=== PATIENT | female | born 1990 | race Caucasian/White ===

== ENCOUNTER 2017-10-30 08:16 | Inpatient (IN) | payer OTHER ==
[2017-10-30] MEDS ORDERED: Penicillin G Potassium IV* 5,000,000 UNITS in NS 0.9% 100 ML* 100 ML IVPB ONE (09:39)
[2017-10-30] MEDS ORDERED: Misoprostol TAB* 100 MCG PO ONE (09:39)
--- NOTE | 2017-10-30 09:52 | HP ---
General Information - Reason for Visit induction of labor - General Information Maternal Age: 27 Grav: 2 Para: 0 SAB: 1 IEA: 0 Estimated Due Date: 10/26/17 Determined By: LMP Gestational Age in Weeks/Days: 40.4 Maternal Blood Type and Rh: A Positive - Results this Serology/RPR Result: Non-Reactive Rubella Result: Non-Immune HBsAg Result: Negative HIV Result: Negative GBS Culture Result: Positive Past Medical History Delivery History: See Records Pertinent Past Medical History: See Records - HSV I (vaginally), BMI 31, GBS + Pertinent Past Surgical History: See Records - groin: hernia 1994 Pertinent Family History: See Records - HTN, BrCA, DM - Antepartal Records Antepartal Records: Reviewed, Complicated by: - HSV I (vaginally), GBS +, BMI 31 Review of Systems Constitutional: Comfortable CV Complaint: No Respiratory: Shortness of Breath: No Gastrointestinal: No Nausea/Vomiting, Normal Bowel Movement Genitourinary: No Dysuria, No Bleeding, No Leaking Fluid Musculoskeletal: No Complaint, No Epigastric Pain Neurological: No Headache, No Visual Changes Movement: Normal Exam Allergies/Adverse Reactions: Allergies No Known Allergies Allergy (Verified 10/21/17 18:33) T:98.2, P:90, R:18, BP:127/75, O2:98 - Measurements Height: 5 ft 3 in Weight: 197 lb Weight in lbs: [phone] Body Mass Index (BMI): 34.9 Pre- Weight: 170 lb Weight Gained This : 27 lbs and 0 ozs - Exam Breast: Breast Exam Deferred CVA: No CVA Tenderness Extremities: No Edema Heart: Normal Rhythm/Heart Sounds HEENT: No Significant Findings Lungs: Clear Bilaterally Rectal: Rectal Exam Deferred Reflexes: DTR 2+ Thyroid: No Thyromegaly - Abdominal Exam Abdomen Exam: Fundal Height Consistent with Dates - Ultrasound/Biophysical Profile Ultrasound Status: Not Done Targeted Exam Findings Cervical Exam: 1cm Effacement: 60% Station: -2 Presenting Part: Vertex Membrane Status: Intact Bleeding/Discharge: None EFM Findings - External Monitor Findings Baseline Heart Rate: 135 External Monitor Findings: Accelerations Present, No Pattern of Variable or Late Decelerations, Variability Moderate, Baseline Stable Contractions: Irregular, Mild, < 45 Seconds Assessment/Plan - Assessment 27 y.o. 40w4d EGA. GBS +, Induction of labor - Obstetrical Risk Factors Obstetrical Risk Factors: GBS Positive - Plan Plan: Induction, Cervical Ripening - Date/Time of Admission Date of Admission: 10/30/17 Time of Admission: 09:45
[2017-10-30] MEDS ORDERED: Penicillin G Potassium IV* 2,500,000 UNITS in NS 0.9% 100 ML* 100 ML IVPB SCH (10:00)
--- NOTE | 2017-10-30 17:17 | PN ---
Progress Note - Progress Note Date of Service: 10/30/17 Note: Pt is resting, ambulating and using hydrotherapy. Pt reports increased pain and frequency of contractions. Pt denies bloody show, LOF and reports + FM. No concners at this time. Cat I tracing, VSS. Reevaluate in AM or sooner PRN.
[2017-10-30] MEDS ORDERED: Calcium Carbonate CHEW TAB* 500 MG (TUMS) PO PRN (20:04)
[2017-10-30] MEDS ORDERED: Nalbuphine* 10 MG/ML 1 ML VIAL IM PRN (20:05)
[2017-10-30] MEDS ORDERED: Promethazine INJ(RESTRICTED)* 25 MG/ML 1 ML VIAL IM PRN (20:06)
[2017-10-31] MEDS ORDERED: Misoprostol TAB* 100 MCG PO ONE (09:09)
--- NOTE | 2017-10-31 09:14 | PN ---
Progress Note - Progress Note Date of Service: 10/31/17 SOAP: Subjective: [Pt reports contractions in the evening that slowed down after a bath and mild intermittent ctx overnight. Pt desires continued cervical ripening. +FM, -LOF, +bloody show.] Objective: [T:98.2, R:17, P:82, BP: 128/76 NST: baseline: 145, +accels, -decels, mod variability, ctx mild <30 sec long and every 5-10 minutes cervix: 1-2/70/-2 intact membranes ] Assessment: [27 y.o. at 40w5d, Cervical ripening] Plan: [1) Cervical ripening 2) Reviewed risks versus benefits and pt elects to continue with cervical ripening 3) Reevaluate in 4 hours or sooner PRN]
[2017-10-31 13:00] VITALS: BP 111/76
== END 2017-10-31 14:45 | disposition home or self-care (01) | DRG 782 ==
LOC: MCHOBOUT 08:16 → MCHOB 09:35
PROVIDERS: ADMIT Midwife; ATTEND Midwife
PROC: 3E033VJ Introduction of Other Hormone into Peripheral Vein, Percutaneous Approach (ICD-10-PCS; principal; 2017-10-30)
DX: O48.0 Post-term pregnancy (principal); Z3A.40 40 weeks gestation of pregnancy; O62.2 Other uterine inertia; O61.0 Failed medical induction of labor
CPT/HCPCS: 59200; J2300; J2540; J2550; S0191

== ENCOUNTER 2017-11-04 02:43 | Inpatient (IN) | payer OTHER ==
[2017-11-04] MEDS ORDERED: Penicillin G Potassium IV* 5,000,000 UNITS in NS 0.9% 100 ML* 100 ML IVPB ONE (03:41)
--- NOTE | 2017-11-04 03:49 | HP ---
General Information - Reason for Visit at 41 2/7 weeks in labor with spontaneous rupture of membranes, +GBS culture. - General Information Maternal Age: 27 Grav: 2 Para: 0 SAB: 1 IEA: 0 Estimated Due Date: 10/26/17 Determined By: LMP Gestational Age in Weeks/Days: 41 2/7 Maternal Blood Type and Rh: A Positive - Results this Serology/RPR Result: Non-Reactive Rubella Result: Non-Immune HBsAg Result: Negative HIV Result: Negative GBS Culture Result: Positive Past Medical History Delivery History: See Records Pertinent Past Medical History: See Records Past Medical History Comment: Anxiety HSV 1 Pertinent Past Surgical History: See Records Past Surgical History Comment: Groin Hernia repair 1993 Pertinent Family History: See Records - Antepartal Records Antepartal Records: Reviewed, Complicated by: - Postdates Review of Systems Constitutional: Uncomfortable CV Complaint: No Respiratory: Shortness of Breath: No Gastrointestinal: No Nausea/Vomiting, Normal Bowel Movement Genitourinary: Leaking Fluid, No Dysuria, No Bleeding Musculoskeletal: No Complaint, No Epigastric Pain Neurological: No Headache, No Visual Changes Movement: Normal Exam Allergies/Adverse Reactions: Allergies No Known Allergies Allergy (Verified 10/21/17 18:33) Temp 98.4 P 87 RR 20 BP 130/90 POx 99% RA Lab Values - Entire Visit: Laboratory Tests 11/04/17 03:11 Vag Amniotic Fld Detect Positive - Measurements Height: 5 ft 3 in Weight: 199 lb Body Mass Index (BMI): 35.2 Pre- Weight: 170 lb - Exam Breast: Breast Exam Deferred CVA: No CVA Tenderness Extremities: No Edema Heart: Normal Rhythm/Heart Sounds HEENT: No Significant Findings Lungs: Clear Bilaterally Rectal: Rectal Exam Deferred Reflexes: DTR 2+ Thyroid: No Thyromegaly - Abdominal Exam Abdomen Exam: Non-Tender, Fundal Height Consistent with Dates - Ultrasound/Biophysical Profile Biophysical Profile: Normal Reactive NST Targeted Exam Findings See L&D Outpatient Visit Provider Note for Findings: N/A Cervical Exam: 4cm Effacement: 70% Station: -2 Presenting Part: Vertex Membrane Status: SROM - positive ROM plus Amniotic Fluid Evaluation: Positive ROM Plus Bleeding/Discharge: None EFM Findings - External Monitor Findings Baseline Heart Rate: 140 External Monitor Findings: Accelerations Present Contractions: Regular - Q3-4min apart, < 45 Seconds, 45-90 Seconds Assessment/Plan - Assessment Potdates with SROM and labor. - Obstetrical Risk Factors Obstetrical Risk Factors: GBS Positive, Post-Dates - Plan Plan: IV Hydration, Antibiotic Prophylaxis, Admit - Anticipate Vaginal Delivery
[2017-11-04] MEDS ORDERED: Promethazine INJ(RESTRICTED)* 25 MG/ML 1 ML VIAL IV ONE (04:20)
[2017-11-04] MEDS ORDERED: Nalbuphine* 10 MG/ML 1 ML VIAL IV ONE (04:20)
[2017-11-04 04:34] LABS: ABS Basophils 0 10^3/ul (0-0.2); ABS Eosinophils 0.1 10^3/ul (0-0.6); ABS Lymphocytes 2.8 10^3/ul (1.0-4.8); ABS Monocytes 0.8 10^3/ul (0-0.8); ABS Neutrophils 7.9 10^3/ul (1.5-7.7); ABS Nucleated RBC 0 10^3/ul; Eosinophil % 0.7 % (0-6); Hematocrit 39 % (35-47); Mean Corpuscular HGB Conc 33 g/dl (31-36); Mean Corpuscular Hemoglobin 29 pg (27-31); Mean Corpuscular Volume 88 fL (80-97); Mean Platelet Volume 8.6 um3 (7.4-10.4); Nucleated Red Blood Cells % 0.3; Platelet Count 256 10^3/ul (150-450); Red Blood Count 4.47 10^6/ul (4.00-5.40); Red Cell Distribution Width 14 % (10.5-15); White Blood Count 11.6 10^3/ul (3.5-10.8)
[2017-11-04] MEDS: Penicillin G Potassium IV* 2,500,000 UNITS in NS 0.9% 100 ML* 100 ML IVPB SCH ×4 (08:26→21:04)
--- NOTE | 2017-11-04 10:09 | PN ---
Progress Note - Progress Note Date of Service: 11/04/17 Note: S: pt reports contractions are increasing in intensity. +FM, +leaking of pink tinged fluid, -VB. Pt coping well O:T:98.8 BP:129/81 P:109 FHT: 140bpm, +accels, -decels, mod variability, ctx q 3-5 A: 27 y.o. at 41w2d SROM, GBS +, early labor P:1) Continue position changes and ambulation 2) Reevaluate around 2:30 for progress or sooner PRN 3) con't GBS prophylaxis
--- NOTE | 2017-11-04 14:29 | PN ---
Progress Note - Progress Note Date of Service: 11/04/17 SOAP: Subjective: [Pt reports contractions increasing in intensity but less frequent. Pt c/o increased pressure] Objective: [T:99.1, BP: 131/83, P:100 FHT: 145 bpm, +accels, -decels, mod variability. Ctx q 5 min. Cervix 4/100/-1] Assessment: [27 y.o. 41w 2d EGA, SROM, Cat I tracing, inadequate ctx] Plan: [1) Augment low dose pitocin 2) Nitronox for pain control 3) con't position changes and rest PRN. 4) Reevaluate PRN]
[2017-11-04] MEDS ORDERED: Oxytocin in LR* 20 UNITS/1,000 ML BAG IVPB ONE (14:38)
[2017-11-04] MEDS ORDERED: Oxytocin in LR* 20 UNITS/1,000 ML BAG IVPB SCH ×2 (15:00→23:45)
[2017-11-04] MEDS ORDERED: OBEPIDURAL* 250 ML EPIDURAL ONE (17:04)
--- NOTE | 2017-11-04 17:08 | PN ---
Progress Note - Progress Note Date of Service: 11/04/17 Note: Pt feeling more pressure, feeling tired has been alternating tub and nitronox with moderate pain relief, requests epidural at this time. Cervix: /-1, NST : baseline 155bpm, +accels, occasional variables and early decels, no lates, moderate variability and ctx q 2-4 min. Anesthesia notified of request for epidural. Pitocin at 5, VSS, afebrile.
[2017-11-04] MEDS ORDERED: Famotidine TAB* 20 MG PO PRN (18:21)
[2017-11-04] MEDS ORDERED: Phenylephrine IV* 40 MCG/ML 10 ML SYRINGE IV PUSH PRN ×4 (18:21)
[2017-11-04] MEDS ORDERED: Sodium Citrate/Citric Acid* 15 ML UDC PO PRN (18:21)
[2017-11-04] MEDS ORDERED: OBEPIDURAL* 250 ML EPIDURAL SCH (19:00)
[2017-11-04] MEDS ORDERED: Ammonia Inhalant* 1 EA AMP ONE (22:36)
[2017-11-04] MEDS ORDERED: Dibucaine 1% 28.35 GM TUBE PR PRN (23:01)
[2017-11-04] MEDS ORDERED: Acetaminophen TAB* 325 MG PO PRN (23:01)
[2017-11-04] MEDS ORDERED: Glycerin ADULT SUPP PR PRN (23:01)
[2017-11-04] MEDS ORDERED: Witch Hazel PAD* JAR TOPICAL PRN (23:01)
[2017-11-04] MEDS ORDERED: Ibuprofen TAB* 600 MG PO PRN (23:01)
--- NOTE | 2017-11-04 23:01 | PROCNOTE ---
[facility] OB: Delivery Note - Delivery A Date of : 11/04/17 Time of : 22:40 Sex: Male Weight at : 7 lb 14 oz Score 1 Minute: 4 Score 5 Minutes: 8 Gestational Age in Weeks and Days at Delivery: 41 Weeks and 2 Days Delivery Method: Spontaneous Vaginal Labor: Spontaneous Did Patient attempt ?: N/A, No Previous Amniotic Fluid: Clear Estimated Blood Loss: 100 Anesthesia/Analgesia: CEI for Labor Delivered By: Hoa Hurtado - Perinekailyn Perineal Injury: Abrasion Only - Not Repaired Perineal Repair: None - Events Delivery Events of Note: Pitocin During Labor, Supplemental O2 to Mother, Full Course of Antibiotics
[2017-11-05 06:30] LABS: ABS Basophils 0 10^3/ul (0-0.2); ABS Eosinophils 0 10^3/ul (0-0.6); ABS Lymphocytes 2.6 10^3/ul (1.0-4.8); ABS Monocytes 1.4 10^3/ul (0-0.8); ABS Neutrophils 10.4 10^3/ul (1.5-7.7); ABS Nucleated RBC 0 10^3/ul; Eosinophil % 0.2 % (0-6); Hematocrit 33 % (35-47); Hemoglobin 10.7 g/dl (12.0-16.0); Lymphocyte % 17.9 % (25-47); Mean Corpuscular HGB Conc 33 g/dl (31-36); Mean Corpuscular Hemoglobin 29 pg (27-31); Mean Corpuscular Volume 88 fL (80-97); Mean Platelet Volume 8.3 um3 (7.4-10.4); Nucleated Red Blood Cells % 0.1; Platelet Count 216 10^3/ul (150-450); Red Blood Count 3.68 10^6/ul (4.00-5.40); Red Cell Distribution Width 15 % (10.5-15); White Blood Count 14.4 10^3/ul (3.5-10.8)
[2017-11-05] MEDS ORDERED: Simethicone TAB* 80 MG TAB.CHEW PO SCH (08:30)
[2017-11-05] MEDS ORDERED: Ferrous Gluconate TAB* 324 MG TAB PO SCH (09:00)
[2017-11-05] MEDS: Docusate CAP* 100 MG PO SCH ×3 (09:28→20:34)
[2017-11-05 20:38] VITALS: BP 126/75
[2017-11-06] MEDS: Docusate CAP* 100 MG PO SCH ×2 (09:14→14:25)
[2017-11-06] MEDS ORDERED: Measles, Mumps,Rubella VACC* 0.5 ML/VIAL SUBCUT ONE (13:22)
== END 2017-11-06 17:24 | disposition home or self-care (01) | DRG 775 ==
LOC: MCHOBOUT 02:43 → MCHOB 03:21
PROVIDERS: ADMIT Obstetrics & Gynecology; ATTEND Midwife
PROC: 10E0XZZ Delivery of Products of Conception, External Approach (ICD-10-PCS; principal; 2017-11-04)
CPT/HCPCS: 36415; 84112; 85025; 86850; 86900; 86901; A9270-GY; J2300; J2540; J2550

== ENCOUNTER 2018-12-30 10:28 | Emergency (ER) | payer OTHER ==
[2018-12-30] MEDS ORDERED: Ondansetron ODT TAB* 4 MG PO ONE (11:46)
[2018-12-30] MEDS ORDERED: Famotidine TAB 40 MG(NF) 40 MG TAB PO ONE (11:47)
--- NOTE | 2018-12-30 11:52 | ED ---
Complex/Multi-Sys Presentation - HPI Summary HPI Summary: Patient is a 28 y/o F presenting to [facility] with complaints of N/V, decreased appetite, weight loss and generalized weakness. Patient reports that Sx onset some time between June and August 2018 and have progressively worsened. Weight loss of 40 lbs is estimated. She denies abdominal pain and compares her Sx to "morning sickness" but notes that she is not . Patient further denies rashes, fever and edema. Patient states that she has not been evaluated for her Sx yet. Patient reports that she has been shaking and had an anxiety that she "cannot get rid of" today. She also states that she had an episode of palpitations with anxiety a few weeks ago. She notes Hx of depression but states that her present Sx are dissimilar. Per triage, "She is struggling to take care of her mother in law who is dying on hospice and her 14 month old son ". SI was denied on triage. Patient is currently on her menstrual cycle and notes that this aggravates her Sx. She also notes that she has tried smoking marijuana and Xanax to alleviate her Sx but was unsuccessful. Patient had immig[place] the [place] two [place] ago. She had a child 14 months ago and breast- fed for 6 months. Patient reports that she has not been established with a PCP yet. On triage, pain is denied, nothing is noted to aggravate/alleviate Sx. Home medications and allergies are reviewed. - History Of Current Complaint Chief Complaint: EDNauseaVomitDiarrh Time Seen by Provider: 12/30/18 10:48 Hx Obtained From: Patient Onset/Duration: Lasting Hours - anxiety, shaking, Lasting Weeks - N/V, decreased appetite, weight loss and generalized weakness, Still Present Timing: Hours - anxiety, shaking, Weeks - N/V, decreased appetite, weight loss and generalized weakness Severity Currently: None - pain denied Aggravating Factor(s): menstrual cycle Alleviating Factor(s): nothing Associated Signs And Symptoms: Positive: Nausea, Vomiting, Other - positive - decreased appetite, weight loss, generalized weakness, shaking, anxiety; negative - rash, SI. Negative: Edema, Abdominal Pain, Fever - Allergies/Home Medications Allergies/Adverse Reactions: Allergies Allergy/AdvReac Type Severity Reaction Status Date / Time No Known Allergies Allergy Verified 10/21/17 18:33 Home Medications: Home Medications Multivitamins/Minerals TAB* [Theragran/minerals TAB*] 1 tab PO DAILY 12/30/18 [ History Confirmed 12/30/18] PMH/Surg Hx/FS Hx/Imm Hx Endocrine/Hematology History: Denies: Hx Diabetes, Hx Thyroid Disease Cardiovascular History: Denies: Hx Hypertension Respiratory History: Denies: Hx Asthma History: Denies: Hx Kidney Infection, Other Problems/Disorders Psychiatric History: Denies: Hx Anxiety, Hx Depression, Other Psychiatric Issues/Disorders Infectious Disease History: No Infectious Disease History: Denies: Traveled Outside the [place] in Last 30 Days - Family History Known Family History: Negative: Diabetes - Social History Alcohol Use: None Substance Use Type: Reports: None Smoking Status (MU): Never Smoked Tobacco Review of Systems Constitutional: Other - positive - weight loss, generalized weakness, shaking Negative: Fever Gastrointestinal: Other - positive - decreased appetite Positive: Vomiting, Nausea. Negative: Abdominal Pain Negative: Edema Negative: Rash Psychological: Other - negative - SI Positive: Anxious All Other Systems Reviewed And Are Negative: Yes Physical Exam - Summary Physical Exam Summary: Constitutional: Well-developed, Well-nourished, Alert. (-) Distressed Skin: Warm, Dry HENT: Normocephalic; Atraumatic Eyes: Conjunctiva normal Neck: Musculoskeletal ROM normal neck. (-) JVD, (-) Stridor, (-) Tracheal deviation Cardio: Rhythm regular, rate normal, Heart sounds normal; Intact distal pulses; The pedal pulses are 2+ and symmetric. Radial pulses are 2+ and symmetric. (-) Murmur Pulmonary/Chest wall: Effort normal. (-) Respiratory distress, (-) Wheezes, (-) Rales Abd: Soft, (-) tenderness, (-) Distension, (-) Guarding, (-) Rebound Musculoskeletal: (-) Edema Lymph: (-) Cervical adenopathy Neuro: Alert, Oriented x3 Psych: Anxious-appearing and tearful Triage Information Reviewed: Yes Vital Signs On Initial Exam: Initial Vitals Temp Pulse Resp BP Pulse Ox 98.7 F 100 16 163/116 97 12/30/18 10:31 12/30/18 10:31 12/30/18 10:31 12/30/18 10:31 12/30/18 10:31 Vital Signs Reviewed: Yes Procedures - Sedation Patient Received Moderate/Deep Sedation with Procedure: No Diagnostics - Vital Signs Vital Signs Temp Pulse Resp BP Pulse Ox 12/30/18 10:31 98.7 F 100 16 163/116 97 - Laboratory Result Diagrams: 12/30/18 12:14 12/30/18 12:14 Lab Statement: Any lab studies that have been ordered have been reviewed, and results considered in the medical decision making process. Re-Evaluation - Re-Evaluation First Eval Re-Evaluation Time: 13:24 Change: Improved Comment: Patient reports improvement of Sx and states that she believes she would be able to eat some food. Results of labs were discussed, low TSH was noted. Patient was discharged to home with [facility] follow up and prescriptions for Pepcid and Zofran. She is agreeable with plan of care. Complex Multi-Symp Course/Dx Course Of Treatment: Patient is a 28 y/o F presenting to [facility] with complaints of N/V, decreased appetite, weight loss and generalized weakness. Patient reports that Sx onset some time between June and August 2018 and have progressively worsened. Weight loss of 40 lbs is estimated. She denies abdominal pain and compares her Sx to "morning sickness". Patient reports that she has been shaking and had an anxiety that she "cannot get rid of" today. On physical exam, she is noted to be tearful and anxious-appearing. Bloodwork was WNL with exception of TSH of 0.27. During ED course, patient received Zofran 4 mg PO and Pepcid 40 mg PO. Patient reports improvement of Sx and states that she believes she would be able to eat some food. Results of labs were discussed , low TSH was noted. Patient was discharged to home with [facility] follow up and prescriptions for Pepcid and Zofran. She is agreeable with plan of care. - Diagnoses Provider Diagnoses: Hyperthyroidism, Nausea, Anxiety Discharge ED - Sign-Out/Discharge Documenting (check all that apply): Patient Departure - discharge - Discharge Plan Condition: Stable Disposition: HOME Prescriptions: Famotidine TAB* [Pepcid 20 MG TAB*] 20 mg PO BID #30 tab Ondansetron TAB* [Zofran 4 MG Tab*] 4 mg PO Q6H PRN #20 tab PRN Reason: Nausea Patient Education Materials: Hyperthyroidism (ED), Acute Nausea and Vomiting ( ED) Print Language: UKRAINIAN Referrals: [facility] of [facility] [Outside] No Primary Care Phys,NOPCP [Primary Care Provider] - Additional Instructions: Follow-up with your [employer] and a primary care doctor for further thyroid testing. - Billing Disposition and Condition Condition: STABLE Disposition: Home - Attestation Statements Document Initiated by Cathie: Yes Documenting Scribe: SARA BUSBY Provider For Whom Scribe is Documenting (Include Credential): CELENA IBARRA MD Scribe Attestation: I, SARA BUSBY, scribed for CELENA SINGLETON MD on 12/30/18 at 1745. Scribe Documentation Reviewed: Yes Provider Attestation: The documentation as recorded by the SARA corcoran accurately reflects the service I personally performed and the decisions made by me, CELENA SINGLETON MD Status of Scribe Document: Viewed
[2018-12-30 12:29] LABS: ABS Lymphocytes 1.5 10^3/ul (1.0-4.8); ABS Monocytes 0.4 10^3/ul (0-0.8); ABS Neutrophils 3.5 10^3/ul (1.5-7.7); Eosinophil % 0.9 %; Hematocrit 44 % (35-47); Lymphocyte % 27.1 %; Mean Corpuscular HGB Conc 34 g/dL (31-36); Mean Corpuscular Hemoglobin 31 pg (27-31); Mean Corpuscular Volume 92 fL (80-97); Mean Platelet Volume 7.9 fL (7.4-10.4); Platelet Count 277 10^3/uL (150-450); Red Cell Distribution Width 12 % (10-15); White Blood Count 5.5 10^3/uL (3.5-10.8)
[2018-12-30 12:47] LABS: ALT 13 U/L (7-52); AST 15 U/L (13-39); Albumin 4.5 g/dL (3.2-5.2); Albumin/Globulin Ratio 1.6 (1-3); Alkaline Phosphatase 54 U/L (34-104); Anion Gap 8 mmol/L (2-11); BUN/Creatinine Ratio 17.9 (8-20); Blood Urea Nitrogen 15 mg/dL (6-24); C Reactive Protein 3.02 mg/L (<8.01); CO2 Carbon Dioxide 23 mmol/L (22-32); Calcium 9.6 mg/dL (8.6-10.3); Chloride 104 mmol/L (101-111); EGFR African American 96.3 (>60); EGFR Non-African American 79.6 (>60); Globulin 2.9 g/dL (2-4); Glucose 87 mg/dL (70-100); Magnesium 1.9 mg/dL (1.9-2.7); Potassium 4.1 mmol/L (3.5-5.0); Sodium 135 mmol/L (135-145); Total Protein 7.4 g/dL (6.4-8.9)
[2018-12-30 12:52] LABS: HCG Pregnancy < 0.60 mIU/mL
[2018-12-30] MEDS ORDERED: Famotidine TAB* 20 MG PO ONE (13:00)
[2018-12-30 13:01] LABS: TSH (Thyroid Stimulating Horm) 0.27 mcIU/mL (0.34-5.60)
[2018-12-30 13:59] VITALS: BP 136/87
== END 2018-12-30 14:00 | disposition home or self-care (01) ==
LOC: ED 10:28
DX: E05.90 Thyrotoxicosis, unspecified without thyrotoxic crisis or storm (principal); R11.0 Nausea; F41.9 Anxiety disorder, unspecified
CPT/HCPCS: 36415; 80053; 83605; 83690; 83735; 84443; 84702; 85025; 86140; 99283; A9270-GY

== ENCOUNTER 2019-10-19 23:14 | Inpatient (IN) ==
[2019-10-20] MEDS ORDERED: Lactated Ringers 1000 ml BAG 1,000 ML IV ONE (00:47)
[2019-10-20] MEDS ORDERED: Oxytocin in LR 20 UNITS/1,000 ML BAG IVPB SCH (01:00)
[2019-10-20] MEDS ORDERED: Lactated Ringers 1000 ml BAG 1,000 ML IV SCH ×3 (01:00→07:00)
[2019-10-20 01:28] LABS: ABS Basophils 0.1 10^3/ul (0-0.2); ABS Eosinophils 0.1 10^3/ul (0-0.6); ABS Lymphocytes 3.3 10^3/ul (1.0-4.8); ABS Monocytes 0.8 10^3/ul (0-0.8); ABS Neutrophils 7.6 10^3/ul (1.5-7.7); Eosinophil % 0.8 %; Hematocrit 34 % (35-47); Hemoglobin 11.6 g/dL (12.0-16.0); Lymphocyte % 27.9 %; Mean Corpuscular HGB Conc 35 g/dL (31-36); Mean Corpuscular Hemoglobin 30 pg (27-31); Mean Corpuscular Volume 85 fL (80-97); Platelet Count 233 10^3/uL (150-450); Red Blood Count 3.93 10^6 /uL (3.70-4.87); Red Cell Distribution Width 14 % (10-15); White Blood Count 11.9 10^3/uL (3.5-10.8)
[2019-10-20] MEDS ORDERED: fentaNYL 100 mcg/2 ml 50 MCG/ML VIAL IV ONE (02:15)
[2019-10-20 02:23] LABS: Urine Benzodiazepine Screen None Detected (None Detect); Urine Cannabinoids Screen None Detected (None Detect); Urine Opiates Screen None Detected (None Detect)
[2019-10-20] MEDS ORDERED: OBEPIDURAL 250 ML EPIDURAL ONE (03:45)
[2019-10-20] MEDS ORDERED: Phenylephrine 40 mcg/mL 10mL (400mcg) SYRINGE IV PUSH PRN (04:41)
[2019-10-20] MEDS ORDERED: Sodium Citrate/Citric Acid LIQ 15 ML UDC PO PRN (04:41)
[2019-10-20] MEDS ORDERED: OBEPIDURAL 250 ML EPIDURAL SCH (05:00)
[2019-10-20] MEDS ORDERED: Glycerin ADULT 2.4 gm SUPP PR PRN (06:05)
[2019-10-20] MEDS ORDERED: Dibucaine 1% OINT 28.35 GM TUBE PR PRN (06:05)
[2019-10-20] MEDS ORDERED: Witch Hazel PAD JAR TOPICAL PRN (06:05)
[2019-10-20] MEDS ORDERED: SERTRALINE 50 MG PO SCH ×2 (09:00→12:00)
[2019-10-21 06:52] LABS: ABS Eosinophils 0.1 10^3/ul (0-0.6); ABS Lymphocytes 3.2 10^3/ul (1.0-4.8); ABS Monocytes 0.7 10^3/ul (0-0.8); ABS Neutrophils 6.8 10^3/ul (1.5-7.7); Eosinophil % 0.9 %; Hematocrit 33 % (35-47); Hemoglobin 11.1 g/dL (12.0-16.0); Lymphocyte % 29.6 %; Mean Corpuscular HGB Conc 34 g/dL (31-36); Mean Corpuscular Hemoglobin 29 pg (27-31); Mean Corpuscular Volume 87 fL (80-97); Mean Platelet Volume 8.5 fL (7.4-10.4); Platelet Count 199 10^3/uL (150-450); Red Cell Distribution Width 14 % (10-15); White Blood Count 10.9 10^3/uL (3.5-10.8)
[2019-10-21 07:55] VITALS: BP 99/47
== END 2019-10-21 13:15 | disposition home or self-care (01) | DRG 560 ==
LOC: MCHOBOUT 23:14 → MCHOB 10-20 00:46
PROVIDERS: ADMIT Obstetrics & Gynecology; ATTEND Obstetrics & Gynecology